=== PATIENT | male | born 1985 | race Two or more races ===

== ENCOUNTER 2019-08-03 10:30 | Emergency (ER) | payer SELFPAY ==
[~2019-08-03] VITALS: Ht 175.3 cm; Wt 90.9 kg
[2019-08-03 11:18] VITALS: BP 152/87
== END 2019-08-03 13:34 | disposition left against medical advice (07) ==
LOC: EMS 10:32
DX: S50.312A Abrasion of left elbow, initial encounter (principal); V00.131A Fall from skateboard, initial encounter; Y93.89 Activity, other specified; Y92.89 Other specified places as the place of occurrence of the external cause; Y99.8 Other external cause status